=== PATIENT | male | born 1975 | race Hispanic/Latino ===

== ENCOUNTER 2016-08-15 11:18 | Outpatient (CLI) | payer OTHER ==
--- NOTE | 2016-08-15 14:30 | XRay Report ---
Left ankle 2 views: History: Knee problem. Kidney problem, ankle problem. Findings: The articulation at the talotibial joint appears normal. Metallic screws are noted across the old fracture medial malleolus. Metallic plate and screws are noted distal fibula. Stable hardware. Impression: No acute findings.
--- NOTE | 2016-08-15 14:31 | XRay Report ---
Left foot 2 views: History: Ankle problem. Findings: Normal articular surfaces with mild arthritic changes at the first tarsometatarsal joint and metatarsophalangeal joint. No periosteal reaction or soft tissue calcification or fracture. Impression: Findings as detailed above.
== END 2016-08-15 11:19 | disposition home or self-care (01) ==
LOC: XRAY 11:18
PROVIDERS: ATTEND Internal Medicine
DX: M19.072 Primary osteoarthritis, left ankle and foot (principal); S82.52XD Displaced fracture of medial malleolus of left tibia, subsequent encounter for closed fracture with routine healing; N28.9 Disorder of kidney and ureter, unspecified; M54.9 Dorsalgia, unspecified; M25.569 Pain in unspecified knee; X58.XXXD Exposure to other specified factors, subsequent encounter